=== PATIENT | female | born 1955 | race Caucasian/White ===

== ENCOUNTER → 2024-04-24 09:21 | Outpatient (BNVA) | payer MEDICARE, OTHER, SELFPAY | PROVIDERS: PCP Family Medicine; Visit Provider Family Medicine | DX: C50.919 Malignant neoplasm of unspecified site of unspecified female breast (principal); I89.0 Lymphedema, not elsewhere classified; R60.0 Localized edema; E55.9 Vitamin D deficiency, unspecified | CPT/HCPCS: 80053; 82607; 82652; 85025 ==

== ENCOUNTER 2024-05-08 10:15 | Outpatient (CLI) | payer MEDICARE, OTHER, SELFPAY ==
--- NOTE | 2024-05-08 10:30 | CT_ITS ---
WS: [id number] CT chest w con* [id number] HISTORY: I89.0 - Lymphedema, not elsewhere classified TECHNIQUE: Axial imaging performed through the thorax. Coronal and sagittal reformats are submitted. All CT scans at [facility] use at least one of these dose optimization techniques: automated exposure control; mA and/or kV adjustment per patient size (includes targeted exams where dose is matched to clinical indication); or iterative reconstruction. CONTRAST: Omnipaque 350; 100 mL IV. DLP: 874.51 mGy.cm COMPARISON: None available. Lungs and central airway: Lungs are well aerated. Benign 3 mm granuloma medial RIGHT lower lobe. No pulmonary nodules or masses identified within the lungs. Pleura: Normal. No pleural effusion. Heart and pericardium: Normal size heart with no pericardial effusion. Mediastinum and feliberto: RIGHT hilar lymph node is 12 mm. Indeterminate lymph node. Vessels: Normal size aortic and pulmonary artery. No coronary artery calcifications. Chest wall and lower neck: Large soft tissue mass centered in the RIGHT breast measures 4.4 x 6.6 cm. This mass extends to the anterior surface of the breast with over lying marked skin thickening up to 7 mm. There is an additional chest wall mass in the RIGHT upper thorax. This mass extends over a length of 9 cm and begins at the level of the clavicle with partial encasement of the RIGHT subclavian and axillary arteries. Mass width of 6.1 cm x 6.8 cm anterior posterior. There is contact and possible invasion into the chest wall/intercostal muscles. There is an additional very small nodule measuring 0.6 cm in the LEFT breast. Upper abdomen: No metastatic disease within the visualized liver. Normal adrenal glands. Normal gallbladder. Osseous structures: No destructive process. CT/CT chest w con* [id number] IMPRESSION: 1. Large RIGHT breast mass with extension to the skin surface and marked subcu taneous thickening involving a large portion of the breast. Mass measures 4.4 x 6.6 cm. 2. Additional RIGHT chest wall mass is likely metastatic site. Mass measures 6 .1 x 6.8 x 9.0 cm. Mass extends from the RIGHT clavicle inferiorly by 9 cm migdalia g the chest wall with invasion into the intercostal muscles. No bone destructio n. There is partial encasement and narrowing of the RIGHT subclavian and axilla ry arteries. This may be a cluster of coalescent lymph nodes. 3. No pulmonary nodules or masses. 4. Indeterminate RIGHT hilar lymph node up to 12 mm. 5. No metastatic disease in the visualized liver or adrenal glands. 6. Indeterminate LEFT breast nodule at 0.6 cm. 7. Recommendation: Follow-up diagnostic mammogram and ultrasound. This is most likely a RIGHT breast malignancy with a metastatic site for which biopsy will need to be obtained. Notified Marv Hinton DO at 05/08/2024 12:06 PM.
[2024-05-08] MEDS: iohexol 350 mg/mL 500 mL Btl (per mL) IV (10:41)
== END 2024-05-08 10:16 | disposition home or self-care (01) ==
PROVIDERS: PCP Family Medicine; Visit Provider Family Medicine
DX: I89.0 Lymphedema, not elsewhere classified (principal); C50.919 Malignant neoplasm of unspecified site of unspecified female breast; N63.10 Unspecified lump in the right breast, unspecified quadrant; N63.20 Unspecified lump in the left breast, unspecified quadrant; J84.10 Pulmonary fibrosis, unspecified; R23.4 Changes in skin texture; R22.2 Localized swelling, mass and lump, trunk
CPT/HCPCS: 71260; 80053; 82607; 82652; 85025